=== PATIENT | female | born 1960 | race Caucasian/White ===

== ENCOUNTER 2020-05-29 15:12 | Emergency (ER) | payer OTHER ==
[~2020-05-29] VITALS: Ht 160 cm; Wt 87.5 kg
== END 2020-05-29 18:59 | disposition home or self-care (01) ==
LOC: ER 15:12
DX: R73.9 Hyperglycemia, unspecified (principal)

== ENCOUNTER 2021-04-18 13:18 | Emergency (ER) | payer OTHER ==
[~2021-04-18] VITALS: Ht 160 cm; Wt 88.0 kg
== END 2021-04-18 18:06 | disposition home or self-care (01) ==
LOC: ER 13:18
DX: B34.9 Viral infection, unspecified (principal); Z11.52 Encounter for screening for COVID-19